=== PATIENT | female | born 1990 | race Caucasian/White ===

== ENCOUNTER 2019-01-21 10:52 | Emergency (ER) | payer OTHER ==
[2019-01-21 10:59] VITALS: BP 153/97
--- NOTE | 2019-01-21 11:19 | EDPHY ---
H & P Stated Complaint: Hit head this morning, threw up, sent by . No LOC Time Seen by Provider: 01/21/19 11:05 HPI/ROS: CHIEF COMPLAINT: Head injury HISTORY OF PRESENT ILLNESS: 28-year-old female via private vehicle, no anticoagulant use history, complaining of severe headache, vomiting after she leaned back today and impacted the left occiput against a wall with no loss of consciousness. This occurred approximately 8:00 a.m.. She has had repeated episodes of vomiting starting at approximately 10:00 a.m. as well as severe headache. She denies antecedent symptoms. PRIMARY CARE PROVIDER: REVIEW OF SYSTEMS: 10 systems reviewed and negative with the exception of the elements mentioned in the history of present illness PAST MEDICAL/SURGICAL HISTORY: no anticoagulant use, no relevant medical/ surgical history SOCIAL HISTORY: denies alcohol use at time of incident PHYSICAL EXAM 1) GENERAL: Well-developed, well-nourished, alert and oriented. Appears to be in no acute distress. Answering questions appropriately. 2) HEAD: Normocephalic, left occipital hematoma and tenderness. 3) HEENT: Pupils equal, round, reactive to light bilaterally. Negative Horners. Nasopharynx, oropharynx, clear. No deformity or angulation of nose. No septal hematoma. No rhinorrhea. No oral trauma. Ears bilaterally with normal tympanic membranes. No hemotympanum. No fluid or blood in the external auditory canal. No raccoon eyes. No Mishra sign. Teeth are normally aligned with no gross malocclusion, TMJ bilaterally nontender, facial bones nontender including the zygomatic arch, maxilla mandible. 4) NECK: No cervical collar is on. Posterior cervical spine is nontender, no stepoff, no effusion. Full range of motion which does not elicit any midline cervical spine pain, no posterior midline tenderness, no step-off. 5) LUNGS: Clear to auscultation bilaterally, no wheezes, no rhonchi, no retractions. No obvious signs of trauma. No chest wall pain. No flaring, no grunting. Moving symmetrically. No crepitus. 6) HEART: [Regular rate and rhythm, 7) ABDOMEN: No guarding, no rebound, no focal tenderness, no peritoneal signs, no signs of trauma, no ecchymosis 8) MUSCULOSKELETAL: Moving all extremities, no focal areas of tenderness, no obvious trauma. 9) BACK: No midline vertebral tenderness, no fluctuance, no step-off, no obvious trauma, no visual or palpable abnormality. 10) SKIN: No laceration. No abrasion 11) NEURO: Awake, alert, and oriented to person, place and time. Answers questions appropriately. There were no obvious focal neurologic abnormalities. No cerebellar dysfunction. Cranial nerves 2 through to 12 intact. Normal steady gait. Upper and lower extremities bilaterally with strength 5 / 5, reflexes 2+. DIFFERENTIAL DIAGNOSIS: Not necessarily in any particular order, my differential diagnosis includes, but is not limited to, concussion, skull fracture, intraparenchymal contusion, subarachnoid, subdural and epidural hematoma. The patient understands that this diagnosis is provisional and can never be 100% accurate. - Personal History Current Tetanus Diphtheria and Acellular Pertussis (TDAP): Unsure - Medical/Surgical History Hx Asthma: Yes Hx Chronic Respiratory Disease: No Hx Diabetes: No Hx Cardiac Disease: No Hx Renal Disease: No Hx Cirrhosis: No Hx Alcoholism: No Hx HIV/AIDS: No Hx Splenectomy or Spleen Trauma: No Other PMH: Asthma. - Social History Smoking Status: Never smoked Constitutional: Initial Vital Signs Temperature (C) 36.6 C 01/21/19 10:56 Heart Rate 77 01/21/19 10:56 Respiratory Rate 16 01/21/19 10:56 Blood Pressure 153/97 H 01/21/19 10:56 O2 Sat (%) 97 01/21/19 10:56 O2 Delivery Mode Room Air Allergies/Adverse Reactions: amoxicillin Allergy (Verified 01/21/19 10:59) clavulanic acid [From Augmentin] Allergy (Verified 01/21/19 11:00) Penicillins Allergy (Verified 01/21/19 10:59) Home Medications: Medication Instructions Recorded Diclofenac Sodium 01/21/19 Metformin 1000 mg 01/21/19 Ondansetron Odt [Zofran Odt] 4 mg PO Q4PRN PRN #10 tab 01/21/19 Medical Decision Making - Diagnostics Imaging Results: Imaging Impressions Head CT 01/21/19 11:17 Impression: 1. No acute intracranial findings. If symptoms persist and clinical suspicion warrants, consider MRI. 2. Additional findings as above. Findings discussed with Armando Lima 01/21/2019 at 11:47. ED Course/Re-evaluation: 11:18 a.m.: Head CT ordered in this patient for trauma for the following indication: severe headache, vomiting. 11:50 a.m.: CT interpreted staff radiologist, with images reviewed by self, negative for posttraumatic sequelae. 11:51 a.m.: Patient re-evaluated. Discussed her imaging results. She is answering questions appropriately. Plan will be discharge home with follow-up with Dr. Mireya Strickland, usual and customary head injury precautions, post concussive syndrome, concussion precautions and 2nd impact syndrome precautions provided. Care of patient under supervision of secondary supervising physician Dr Dubon . Patient feels comfortable being discharged. All questions and concerns addressed by myself. Patient given my usual and customary discharge precautions and instructions regarding their clinical impression. Departure - Departure Disposition: Home, Routine, Self-Care Clinical Impression: Post concussive syndrome Condition: Good Instructions: Concussion (ED), Head Injury (ED) Additional Instructions: ALTHOUGH THERE IS NO EVIDENCE OF SERIOUS HEAD INJURY AT THIS TIME, DELAYED SIGNS CAN APPEAR 24 TO 48 HOURS AFTER INJURY. PLEASE RETURN TO THE EMERGENCY DEPARTMENT (ED) IMMEDIATELY IF YOU HAVE INCREASED HEADACHE, PERSISTENT HEADACHE , VOMITING, WEAKNESS, CONFUSION OR VISUAL PROBLEMS. WE RECOMMEND THAT YOU DO NOT RESUME CONTACT SPORTS OR ACTIVITIES THAT TAKE COORDINATION OR BALANCE SUCH SKIING OR RIDING A BICYCLE UNTIL CLEARED TO DO SO BY YOUR DOCTOR OR BY A NEUROLOGIST. Referrals: Mireya Strickland MD [Medical Doctor] - 5-7 days, call for appt. Prescriptions: Ondansetron Odt [Zofran Odt] 4 mg PO Q4PRN PRN #10 tab PRN Reason: Nausea
== END 2019-01-21 12:03 | disposition home or self-care (01) ==
DX: F07.81 Postconcussional syndrome (principal)